=== PATIENT | female | born 1960 | race Caucasian/White ===

== ENCOUNTER 2016-08-07 20:09 | Emergency (ER) | payer OTHER ==
[~2016-08-07] VITALS: Ht 160 cm; Wt 59.0 kg
--- NOTE | 2016-08-07 20:18 | ED CARDIAC/CP/PALPITATIONS ---
History of Present Illness General Chief Complaint: Chest Pain Stated Complaint: CHEST PAIN Source: patient Exam Limitations: no limitations Vital Signs & Intake/Output Vital Signs & Intake/Output Vital Signs Date Time Temp Pulse Resp B/P Pulse O2 O2 Flow FiO2 Ox Delivery Rate 08/08 0119 98.4 80 18 148/98 97 Room Air 08/07 2222 68 18 146/90 96 Room Air 08/07 2100 100 Room Air 08/07 2026 98.6 80 17 178/98 100 Room Air ED Intake and Output 08/08 0000 08/07 1200 Intake Total 220 Output Total Balance 220 Intake, IV 100 Intake, Oral 120 Patient 130 lb Weight Allergies Coded Allergies: oxycodone (From PERCOCET) (N/V, HEADACHE 08/07/16) Reconcile Medications Antiox#10/Om3/Dha/Epa/Lut/Zeax (I-Caps With Lutein-[place] 3 Sfg) 280 MG (78 MG- 148 MG)-10 MG-2 MG CAPSULE 1 CAP PO BID SUPPLEMENT (Reported) Aspirin (Ecotrin*) 81 MG TABLET.DR 1 TAB PO Wednesday HEART/BLOOD ( Reported) Calcium Carb/Vit D3/Minerals (Calcium +D & Minerals Chew Tab) 600 MG-400 TAB.CHEW 1 TAB PO BID SUPPLEMENT (Reported) Glucosamine/D3/Boswellia Carol (Osteo Bi-Flex Tablet) (Unknown Strength) TABLET 1 TAB PO BID SUPPLEMENT (Reported) Ibuprofen 800 MG TABLET 1 TAB PO TID PRN pain Ipratropium/Albuterol Sulfate (Iprat-Albut 0.5-3(2.5) MG/3 Ml) 0.5 MG-3 MG (2.5 MG BASE)/3 ML AMPUL.NEB 1 VIAL INH BID COPD (Reported) Ipratropium/Albuterol Sulfate (Combivent Respimat Inhal Adona) 20 MCG-100 MCG/ ACTUATION MIST.INHAL 1 PUFF INH PRN COPD (Reported) Loratadine (Allerclear) 10 MG TABLET 1 TAB PO DAILY ALLERGIES (Reported) Mometasone Furoate (Asmanex) 220 MCG (30 DOSES) AER.POW.BA 1 PUFF INH BID COPD (Reported) Simvastatin (Simvastatin*) 40 MG TABLET 1 TAB PO QPM CHOLESTEROL (Reported) Triage Nurses Notes Reviewed? yes Onset: Gradual Duration: day(s):, waxing and waning Timing: recent history Quality/Severity: mild, moderate Location: central Radiation: no radiation Activities at Onset: "I was at work." Prior Chest Pain/Card Workup: no prior chest pain Modifying Factors: Worsens With: palpation. Associated Symptoms: "when I moved around my chest hurt." HPI: 56-year-old woman presents with 1.5 days of chest pain. 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 She states, "I just can't lift heavy boxes anymore because my chest hurts when I pick things up. And it hurts when I twist and move." She notes that the pain began yesterday afternoon at work. She felt well this morning but then at work when she began lifting things again the pain returned. The pain is not related to exertion, but rather to lifting objects. She has no diaphoresis syncopal type symptoms or lightheadedness. The pain is nonradiating. Past History Travel History Traveled to [place] past 21 day No Medical History Any Pertinent Medical History? see below for history Cardiovascular: hyperlipidemia Respiratory: asthma History of MRSA: No History of VRE: No History of CDIFF: No Influenza Vaccine: 04/16/13 Surgical History Surgical History: none Psychosocial History Who do you live with Spouse What is your primary language Moldovan Family History Hx Contributory? No Review of Systems Review of Systems Constitutional: Reports: no symptoms. EENTM: Reports: no symptoms. Respiratory: Reports: no symptoms. Cardiovascular: Reports: no symptoms. GI: Reports: no symptoms. Genitourinary: Reports: no symptoms. Musculoskeletal: Reports: no symptoms. Skin: Reports: no symptoms. Neurological/Psychological: Reports: no symptoms. Hematologic/Endocrine: Reports: no symptoms. Immunologic/Allergic: Reports: no symptoms. All Other Systems: Reviewed and Negative Physical Exam Physical Exam General Appearance: well developed/nourished, mild distress Head: atraumatic, normal appearance Eyes: Bilateral: normal appearance. Ears, Nose, Throat: normal pharynx, normal ENT inspection Neck: normal inspection, supple, full range of motion Respiratory: normal breath sounds, no respiratory distress, quiet respiration, lungs clear, left-sided parasternal and left lateral chest wall tenderness to palpation Cardiovascular: regular rate/rhythm Gastrointestinal: normal bowel sounds, soft, non-tender, no organomegaly Back: normal inspection, normal range of motion Extremities: normal inspection Neurologic/Psych: no motor/sensory deficits, awake, alert, oriented x 3 Skin: intact, normal color, warm/dry Core Measures ACS in differential dx? No Severe Sepsis Present: No Septic Shock Present: No Progress Differential Diagnosis: AMI, costochondritis, unstable angina Plan of Care: Orders Procedure Date/time Status TROPONIN LEVEL 08/07 2344 Complete EKG 08/07 2344 Active TROPONIN LEVEL 08/07 2016 Complete PARTIAL THROMBOPLASTIN TIME 08/07 2016 Complete PROTHROMBIN TIME 08/07 2016 Complete MAGNESIUM 08/07 2016 Complete D-DIMER 08/07 2016 Complete COMPREHENSIVE METABOLIC PANEL 08/07 2016 Complete CHOLESTEROL 08/07 2016 Complete CBC WITHOUT DIFFERENTIAL 08/07 2016 Complete EKG 08/07 2009 Active Laboratory Tests 08/07/16 2337: Troponin I < 0.01 08/07/16 2158: PT 10.4, INR 0.99, APTT 33, D-Dimer 225 08/07/16 2045: Anion Gap 10, Estimated GFR > 60, BUN/Creatinine Ratio 15.0, Glucose 120 H, Calcium 9.7, Magnesium 2.0, Total Bilirubin 0.6, AST 43 H, ALT 52, Alkaline Phosphatase 77, Troponin I < 0.01, Total Protein 7.3, Albumin 4.3, Globulin 3.0, Albumin/Globulin Ratio 1.4, Cholesterol 207 H, CBC w Diff NO MAN DIFF REQ, RBC 5.30, MCV 92.6, MCH 31.2 H, RDW 12.4, MPV 7.8, Gran % 52.6, Lymphocytes % 31.4, Monocytes % 10.6 H, Eosinophils % 4.9, Basophils % 0.5, Absolute Granulocytes 3.6, Absolute Lymphocytes 2.1, Absolute Monocytes 0.7 H, Absolute Eosinophils 0.3, Absolute Basophils 0, PUBS MCHC 33.7 Diagnostic Imaging: Viewed by Me: Radiology Read. Discussed w/RAD: Radiology Read. CXR Impression: no acute abnormality, no infiltrates, normal size heart, normal mediastinum Initial ED EKG: normal axis, normal intervals, normal p-waves, normal QRS complex, normal sinus rhythm Repeat EKG: unchanged Comments: PATIENT: COLETTE ALBRIGHT PRESENT AGE: 56 PATIENT ACCOUNT NO: [id number] : 56 LOCATION: [facility] ORDERING PHYSICIAN: SKY HYDE MD SERVICE DATE: 08/07/16 EXAM TYPE: RAD - XRY-PORTABLE CHEST XRAY EXAMINATION: XR PORTABLE CHEST CLINICAL INFORMATION: Chest pain COMPARISON: Chest x-ray 06/25/2010 TECHNIQUE: Portable AP view of the chest was obtained. 8:23 PM FINDINGS: No significant abnormality is noted involving the heart, lungs, mediastinum, bony thorax or soft tissues. IMPRESSION: Unremarkable examination. DICTATED BY: JANINE SMITH MD DATE/TIME DICTATED:08/07/162033 RETAIL RECEIVING CLERK:HIEU DATE/TIME TRANSCRIBED:08/07/162033 CONFIDENTIAL, DO NOT COPY WITHOUT APPROPRIATE AUTHORIZATION. <Electronically signed in Other Vendor System> SIGNED BY: JANINE SMITH MD 08/07/162037 Departure Departure Disposition: HOME OR SELF CARE Condition: Stable Clinical Impression Primary Impression: Chest pain Referrals: Nela HERNANDEZ MD (PCP/Family) Departure Forms: Customer Survey General Discharge Information Prescriptions: Current Visit Scripts Ibuprofen 1 TAB PO TID PRN pain #90 TAB Comments Patient has reproducible chest wall tenderness. Her EKG is benign 2 troponin negative 2 d-dimer is also negative. She has had this pain for one and a half days in the context of lifting heavy boxes at her job. I believe this is most likely musculoskeletal pain. She is also feeling better after acetaminophen and Toradol. I encouraged close follow-up in the emergency department if her symptoms change. 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 All questions were answered. She states that she feels comfortable going home. Critical Care Note Critical Care Note Critical Care Time: non-applicable
[2016-08-07] MEDS ORDERED: IPRAT-ALBUT 0.5-3 ML INH (20:33)
[2016-08-07] MEDS ORDERED: ASMANEX220 MC3 INH (20:33)
[2016-08-07] MEDS ORDERED: SIMVASTATIN40 M1 PO (20:34)
[2016-08-07] MEDS ORDERED: COMBIVENT RESPIM4 GM INH (20:34)
[2016-08-07] MEDS ORDERED: I-CAPS WITH LU1 EACH PO (20:35)
[2016-08-07] MEDS ORDERED: CALCIUM +D & M1 EACH PO (20:37)
[2016-08-07] MEDS ORDERED: ASPIRIN EC81 M1 PO (20:37)
[2016-08-07] MEDS ORDERED: OSTEO BI-FLEX1 EAC3 PO (20:38)
--- NOTE | 2016-08-07 20:38 | RADIOLOGY REPORT ---
EXAMINATION: XR PORTABLE CHEST CLINICAL INFORMATION: Chest pain COMPARISON: Chest x-ray 06/25/2010 TECHNIQUE: Portable AP view of the chest was obtained. 8:23 PM FINDINGS: No significant abnormality is noted involving the heart, lungs, mediastinum, bony thorax or soft tissues. IMPRESSION: Unremarkable examination.
[2016-08-07] MEDS ORDERED: ALLERCLEAR10 MG PO (20:40)
[2016-08-07 20:59] LABS: ABSOLUTE BASOPHIL COUNT 0 /CUMM (0.0-0.2); ABSOLUTE EOSINOPHIL COUNT 0.3 /CUMM (0.0-0.7); ABSOLUTE GRANULOCYTE CT 3.6 /CUMM (1.4-6.5); ABSOLUTE LYMPH COUNT 2.1 /CUMM (1.2-3.4); ABSOLUTE MONOCYTE COUNT 0.7 /CUMM (0.10-0.60); BASOPHIL % 0.5 % (0.0-2.0); EOSINOPHIL % 4.9 % (0-5); GRANULOCYTE % 52.6 % (42.2-75.2); HEMATOCRIT 49.1 % (37-47); MEAN CORPUSCULAR HGB 31.2 PG (27.0-31.0); MEAN CORPUSCULAR HGB CONC 33.7 G/DL (33.0-37.0); MEAN CORPUSCULAR VOLUME 92.6 FL (81.0-99.0); MEAN PLATELET VOLUME 7.8 FL (7.4-10.4); PLATELET COUNT 309 /CUMM (130-400); RBC DISTRIBUTION WIDTH 12.4 % (11.5-14.5); WHITE BLOOD CELL COUNT 6.8 /CUMM (4.8-10.8)
[2016-08-07 22:27] LABS: PT 10.4 SEC (9.4-12.5)
[2016-08-07 22:37] LABS: PTT 33 SEC (25-37)
[2016-08-08] MEDS ORDERED: IBUPROFEN800 M1 PO ×2 (00:26→01:11)
[2016-08-08 01:19] VITALS: BP 148/98
== END 2016-08-08 01:21 ==
LOC: ERH 20:09
PROVIDERS: Pediatrics
DX: R07.9 Chest pain, unspecified (principal)
CPT/HCPCS: 93005; 93010; 96365; 96375; J0131; J1885